=== PATIENT | male | born 2000 | race Hispanic/Latino ===

== ENCOUNTER 2024-05-31 10:38 | Emergency (ER) | payer OTHER ==
[~2024-05-31] VITALS: Ht 175.3 cm; Wt 111.1 kg
[2024-05-31 11:25] VITALS: BP 155/105
== END 2024-05-31 11:25 | disposition home or self-care (01) ==
LOC: ED 10:38
DX: J10.1 Influenza due to other identified influenza virus with other respiratory manifestations (principal)
CPT/HCPCS: 99284

== ENCOUNTER 2025-03-01 16:04 | Emergency (ER) | payer OTHER ==
[~2025-03-01] VITALS: Ht 175.3 cm; Wt 100.0 kg
[2025-03-01 16:31] LABS: BASOPHILS 0.4 % (0.2-1.2); EOSINOPHILS 1.9 % (0.8-7.0); LYMPHOCYTES 30.4 % (21.8-53.1); MCH 31.3 PG (25.7-32.2); MCHC 34.7 g/dL (32.3-36.5); MCV 90.3 fL (79.0-92.2); MONOCYTES 6.8 % (5.3-12.2); NEUTROPHILS 60.1 % (34.0-67.9); RBC 4.76 M/uL (4.63-6.08)
[2025-03-01 16:55] LABS: ALT (SGPT) 166.0 U/L (14-59); AST (SGOT) 65.0 U/L (15-37); GLOMERULAR FILTRATION RATE,EST 113.0 mL/min (>60); PROTEIN, TOTAL 7.8 g/dL (6.4-8.2); UREA NITROGEN 11.0 mg/dL (7-18)
[2025-03-01 18:08] VITALS: BP 141/93
--- NOTE | 2025-03-02 15:13 | EKG ---
[facility] [address] [place], [place] [address] Signed Normal sinus rhythm Normal ECG No previous ECGs available Confirmed by GIO MORALES MD ([id number]) on 03/02/2025 3:12:57 PM Electronically Signed By: GIO MORALES 03/02/25 1513 PATIENT NAME: STEPHANIE VALERIA CHOI Electrocardiogram DATE OF : [birth year] PHYSICIAN: GIO MORALES REPORT #: [id number] REPORT IS CONFIDENTIAL AND NOT TO BE RELEASED WITHOUT AUTHORIZATION
== END 2025-03-01 18:11 | disposition home or self-care (01) ==
LOC: ED 16:04
PROVIDERS: Emergency Medicine
DX: R07.9 Chest pain, unspecified (principal)
CPT/HCPCS: 36415; 71045; 80053; 83735; 84484; 85025; 93005; 93010; 99285-25